=== PATIENT | female | born 1960 | race Caucasian/White ===

== ENCOUNTER 2021-01-11 04:23 | Emergency (ER) | payer MEDICAID, OTHER ==
[~2021-01-11] VITALS: Ht 172.7 cm; Wt 91.0 kg
[2021-01-11] MEDS ORDERED: HYDROCODONE/ACETAMINOPHEN 5/325MG TABLET PO ONE (05:15)
[2021-01-11] MEDS ORDERED: ACET-2708 MT (05:21)
[2021-01-11] MEDS ORDERED: CEPH500C2 MT (05:21)
[2021-01-11] MEDS ORDERED: IBUP-2029 MT (05:21)
[2021-01-11 05:27] VITALS: BP 143/86
== END 2021-01-11 05:36 | disposition home or self-care (01) ==
LOC: ER 04:23
DX: S42.002A Fracture of unspecified part of left clavicle, initial encounter for closed fracture (principal); R03.0 Elevated blood-pressure reading, without diagnosis of hypertension; F11.10 Opioid abuse, uncomplicated; F99 Mental disorder, not otherwise specified; F17.210 Nicotine dependence, cigarettes, uncomplicated; Z71.6 Tobacco abuse counseling; X58.XXXA Exposure to other specified factors, initial encounter; Y93.89 Activity, other specified; Y92.89 Other specified places as the place of occurrence of the external cause
CPT/HCPCS: 99283

== ENCOUNTER 2021-06-17 02:55 | Emergency (ER) | payer MEDICAID, OTHER ==
[~2021-06-17] VITALS: Ht 170.2 cm; Wt 105.0 kg
[~2021-06-17 02:55] MED LIST: ACET-2708 MT; CEPH500C2 MT; IBUP-2029 MT
[2021-06-17] MEDS ORDERED: ACETAMINOPHEN 500MG TABLET PO ONE (03:15)
[2021-06-17] MEDS ORDERED: ACET-2708 MT (03:57)
[2021-06-17 05:48] VITALS: BP 128/81
== END 2021-06-17 05:50 | disposition home or self-care (01) ==
LOC: ER 02:55
DX: S82.892A Other fracture of left lower leg, initial encounter for closed fracture (principal); W50.2XXA Accidental twist by another person, initial encounter; Y93.89 Activity, other specified; Y92.89 Other specified places as the place of occurrence of the external cause; Y99.8 Other external cause status
CPT/HCPCS: 29515; 73610; 73630; 99284

== ENCOUNTER 2021-06-25 05:11 | Emergency (ER) | payer OTHER ==
[~2021-06-25] VITALS: Ht 172.7 cm; Wt 91.0 kg
[2021-06-25] MEDS ORDERED: KETOROLAC 30MG/ML VIAL IV STA (05:24)
[2021-06-25 06:41] LABS: HEMATOCRIT. 38.4 % (36.0-48.0); HEMOGLOBIN. 12.6 g/dL (12.0-16.0); MEAN CORPUSCULAR HEMOGLOBIN 33.7 pg (28.0-32.0); MEAN CORPUSCULAR VOLUME 102.9 fL (81.0-99.0); MEAN PLATELET VOLUME 7.7 fl (7.4-10.4); PLATELET 188 x1000/uL (130-400); RED BLOOD CELL COUNT 3.74 mill/uL (4.2-5.4)
[2021-06-25 06:48] LABS: CHLORIDE 105 mEq/L (98-107)
[2021-06-25 07:20] LABS: PLATELET ESTIMATE NORMAL
[2021-06-25] MEDS ORDERED: CLINDAMYCIN 600 MG in DEXTROSE 5% WATER 50 ML IV ONE (07:30)
[2021-06-25] MEDS ORDERED: CLIN300C12 PO (09:55)
[2021-06-25 10:00] VITALS: BP 142/65
== END 2021-06-25 11:32 | disposition left against medical advice (07) ==
LOC: ER 05:11
DX: T79.8XXA Other early complications of trauma, initial encounter (principal); L03.116 Cellulitis of left lower limb; F11.10 Opioid abuse, uncomplicated; Z85.9 Personal history of malignant neoplasm, unspecified; Z86.19 Personal history of other infectious and parasitic diseases; X58.XXXA Exposure to other specified factors, initial encounter; Y93.89 Activity, other specified; Y92.89 Other specified places as the place of occurrence of the external cause
CPT/HCPCS: 36415; 73590; 80053; 80320; 85025; 96374; 99284; J1885; J3490; J7060; G0480

== ENCOUNTER 2021-07-28 14:07 | Emergency (ER) | payer OTHER ==
[~2021-07-28] VITALS: Ht 175.3 cm; Wt 100.0 kg
[~2021-07-28 14:07] MED LIST changes: +CLIN300C12 PO
[2021-07-28 14:12] VITALS: BP 137/77
[2021-07-28] MEDS ORDERED: TETANUS, DIPHTHERIA, PERTUSSIS VAC/PF 0.5ML (>10YR OLD) IM ONE (14:30)
== END 2021-07-28 14:46 | disposition left against medical advice (07) ==
LOC: ER 14:07
DX: S51.811A Laceration without foreign body of right forearm, initial encounter (principal); R22.42 Localized swelling, mass and lump, left lower limb; F11.10 Opioid abuse, uncomplicated; F10.10 Alcohol abuse, uncomplicated; Y90.9 Presence of alcohol in blood, level not specified; Z86.19 Personal history of other infectious and parasitic diseases; W01.110A Fall on same level from slipping, tripping and stumbling with subsequent striking against sharp glass, initial encounter; Y93.89 Activity, other specified; Y92.488 Other paved roadways as the place of occurrence of the external cause
CPT/HCPCS: 99283